=== PATIENT | female | born 1995 | race Hispanic/Latino ===

== ENCOUNTER 2019-10-09 12:08 | Day surgery (SDC) | payer OTHER ==
[~2019-10-09] VITALS: Ht 170.2 cm; Wt 78.9 kg
[~2019-10-09 12:08] MED LIST: BENA25CA4 PO; DICY10CA13 PO; NS 1,000 ML IV ONE; OMEP40CA97 PO; RANI150T14 PO; ZOFR4TAB16 PO
--- NOTE | 2019-10-09 14:13 | ROOR ---
Patient Name: Sydney Bazan Procedure Date: 10/09/2019 1:55 PM Date of : 1995 Age: 24 Room: [facility] Gender: Female Note Status: Finalized Procedure: Upper Endoscopy + Biopsies Indications: Epigastric abdominal pain, Nausea with vomiting Providers: Juan Rider MD Referring MD: ANDREZ MADDOX MD Requesting Provider: Medicines: Monitored Anesthesia Care Complications: No immediate complications. Procedure: Pre-Anesthesia Assessment: - The heart rate, respiratory rate, oxygen saturations, blood pressure, adequacy of pulmonary ventilation, and response to care were monitored throughout the procedure. The Endoscope was introduced through the mouth, and advanced to the second part of duodenum. The upper GI endoscopy was accomplished without difficulty. The patient tolerated the procedure well. Findings: The Z-line was regular and was found 40 cm from the incisors. No other significant abnormalities were identified in a careful examination of the stomach. Biopsies were taken with a cold forceps in the gastric antrum for Helicobacter pylori testing. The exam of the duodenum was otherwise normal. Impression: - Z-line regular, 40 cm from the incisors. - Biopsies were taken with a cold forceps for Helicobacter pylori testing. - The examination was otherwise normal. Recommendation: - Patient has a contact number available for emergencies. The signs and symptoms of potential delayed complications were discussed with the patient. Return to normal activities tomorrow. Written discharge instructions were provided to the patient. - Resume previous diet. - Discharge patient to home. - Continue present medications. - Await pathology results. - Telephone GI clinic for pathology results in 1 week. - Return to referring physician. - The findings and recommendations were discussed with the patient's family. Juan Rider MD Juan Rider MD 10/09/2019 2:12:32 PM Electronically signed by Juan Rider MD Number of Addenda: 0 Note Initiated On: 10/09/2019 1:55 PM Estimated Blood Loss: Estimated blood loss: none.
[2019-10-09] MEDS ORDERED: PROPOFOL 200 MG/20 ML VIAL As Ordered ONE (14:20)
[2019-10-09] MEDS ORDERED: LIDOCAINE 2% INJ 100 MG/5 ML SDV (FOR ANES.) As Ordered ONE (14:20)
[2019-10-09 14:52] VITALS: BP 135/74
== END 2019-10-09 14:58 | disposition home or self-care (01) ==
LOC: M OPP 12:08
PROVIDERS: ATTEND Internal Medicine Gastroenterology
DX: K29.50 Unspecified chronic gastritis without bleeding (principal); R10.13 Epigastric pain; R11.2 Nausea with vomiting, unspecified; Z79.899 Other long term (current) drug therapy

== ENCOUNTER 2019-12-08 01:16 | Emergency (ER) | payer OTHER ==
[~2019-12-08] VITALS: Ht 170.2 cm; Wt 80.2 kg
[~2019-12-08 01:16] MED LIST changes: -NS 1,000 ML IV ONE
[2019-12-08] MEDS ORDERED: METOCLOPRAMIDE INJ 10MG/2ML VIAL (J2765) IV ONE (01:45)
[2019-12-08] MEDS ORDERED: NS 1,000 ML IV ONE (01:45)
[2019-12-08 02:02] LABS: BASO # 0.1 10^3/uL (0.0-0.2); BASO % 0.5 % (0.0-1.0); EOS # 0.1 10^3/uL (0.0-0.5); HEMATOCRIT 40.8 % (36.0-47.0); HEMOGLOBIN 12.9 g/dl (12.0-15.5); LYMPH # 3.8 10^3/uL (1.5-5.0); LYMPH % 30.4 % (24.0-44.0); MEAN CORPUSCULAR HEMOGLOBIN 29.3 pg (27.0-33.0); MEAN CORPUSCULAR HGB CONC 31.6 g/dl (32.0-36.5); MEAN CORPUSCULAR VOLUME 92.5 fl (80.0-96.0); MONO # 0.7 10^3/uL (0.0-0.8); MONO % 5.7 % (0.0-5.0); NEUTROPHILS # 7.8 10^3/uL (1.5-8.5); NEUTROPHILS % 62.2 % (36.0-66.0); PLATELET COUNT, AUTOMATED 283 10^3/uL (150-450); RED BLOOD COUNT 4.41 10^6/uL (4.00-5.40); WHITE BLOOD COUNT 12.5 10^3/uL (4.0-10.0)
[2019-12-08 02:22] LABS: HCG, SERUM QUALITATIVE NEGATIVE (NEGATIVE)
[2019-12-08] MEDS: GASTROGRAFIN SOLUTION 30ML PO SCH ×2 (02:28→03:01)
[2019-12-08 02:30] LABS: ALBUMIN 4.1 GM/DL (3.2-5.2); ALT/SGPT 25 U/L (12-78); BILIRUBIN,DIRECT 0.2 MG/DL (0.0-0.2); BILIRUBIN,TOTAL 0.3 MG/DL (0.2-1.0); BLOOD UREA NITROGEN 14 MG/DL (7-18); CALCIUM LEVEL 9.3 MG/DL (8.5-10.1); CARBON DIOXIDE LEVEL 29 MEQ/L (21-32); CHLORIDE LEVEL 102 MEQ/L (98-107); GLOMERULAR FILTRATION RATE > 60.0 (>60); GLUCOSE, FASTING 97 MG/DL (70-100); LIPASE 109 U/L (73-393); POTASSIUM SERUM 3.9 MEQ/L (3.5-5.1); SODIUM LEVEL 138 MEQ/L (136-145); TOTAL PROTEIN 7.9 GM/DL (6.4-8.2)
[2019-12-08 02:49] LABS: AMPHETAMINES LEVEL URINE NEGATIVE (NEGATIVE); BARBITURATES URINE NEGATIVE (NEGATIVE); BENZODIAZEPINES URINE NEGATIVE (NEGATIVE); CANNABINOIDS URINE NEGATIVE (NEGATIVE); COCAINE METABOLITE URINE NEGATIVE (NEGATIVE); METHADONE URINE NEGATIVE (NEGATIVE); OPIATES URINE NEGATIVE (NEGATIVE); PHENCYCLIDINE URINE NEGATIVE (NEGATIVE)
[2019-12-08] MEDS ORDERED: ISOVUE-370 76% 100ML VIAL (Q9967) As Ordered ONE (04:06)
--- NOTE | 2019-12-08 04:34 | REPVR ---
PROCEDURE INFORMATION: Exam: CT Abdomen And Pelvis With Contrast Exam date and time: 12/08/2019 4:13 AM Age: 24 years old Clinical indication: Abdominal pain; Generalized TECHNIQUE: Imaging protocol: Computed tomography of the abdomen and pelvis with intravenous contrast. Radiation optimization: All CT scans at this facility use at least one of these dose optimization techniques: automated exposure control; mA and/or kV adjustment per patient size (includes targeted exams where dose is matched to clinical indication); or iterative reconstruction. Contrast material: ISOVUE 370; Contrast volume: 100 ml; Contrast route: IV; COMPARISON: No relevant prior studies available. FINDINGS: Liver: The liver attenuation is 77 Hounsfield units and the spleen is 126 Hounsfield units. Gallbladder and bile ducts: Normal. No calcified stones. No ductal dilation. Pancreas: Normal. No ductal dilation. Spleen: Normal. No splenomegaly. Adrenals: Normal. No mass. Kidneys and ureters: Normal. No hydronephrosis. Stomach and bowel: Unremarkable. No obstruction. No mucosal thickening. Appendix: A normal appendix is seen. Intraperitoneal space: Unremarkable. No free air. No significant fluid collection. Vasculature: Unremarkable. No abdominal aortic aneurysm. Lymph nodes: Unremarkable. No enlarged lymph nodes. Bladder: Unremarkable as visualized. Reproductive: Question of a complex cyst of the left ovary measuring 2.7 cm. Bones/joints: Unremarkable. No acute fracture. Soft tissues: Unremarkable. IMPRESSION: 1. Fatty infiltration of the liver. 2. Question of a complex left ovarian cyst measuring 2.[address] cm[address] Otherwise negative [address] abdomen/pelvis. Electronically signed by: Refugio Minor On 12/08/2019 04:31:55 AM
[2019-12-08 06:21] VITALS: BP 100/55
--- NOTE | 2019-12-08 06:42 | ED PDOC ---
Post-Departure Follow-Up nata méndez faxed formal report of ct abd/p for fu Richie Melgar MD Dec 08, 2019 06:42
== END 2019-12-08 07:04 | disposition home or self-care (01) ==
LOC: M ED 01:16
DX: G89.29 Other chronic pain (principal); R10.9 Unspecified abdominal pain; K21.9 Gastro-esophageal reflux disease without esophagitis; K76.0 Fatty (change of) liver, not elsewhere classified; Z79.899 Other long term (current) drug therapy
CPT/HCPCS: 74177; 80048; 80076; 80307; 83690; 84703; 85025; 96361; 96374; 99284; J2765; Q9963; Q9967

== ENCOUNTER 2020-01-07 11:13 | Emergency (ER) | payer OTHER ==
[~2020-01-07] VITALS: Ht 170.2 cm; Wt 84.9 kg
[2020-01-07] MEDS ORDERED: METOCLOPRAMIDE INJ 10MG/2ML VIAL (J2765) IV ONE (12:45)
[2020-01-07] MEDS ORDERED: KETOROLAC 30 MG/ML VIAL (J1885) IV ONE (12:45)
[2020-01-07] MEDS ORDERED: NS 1,000 ML IV ONE (12:45)
[2020-01-07 13:20] LABS: BASO # 0.1 10^3/uL (0.0-0.2); BASO % 0.8 % (0.0-1.0); EOS # 0.1 10^3/uL (0.0-0.5); HEMATOCRIT 37.3 % (36.0-47.0); HEMOGLOBIN 12.3 g/dl (12.0-15.5); LYMPH # 2.8 10^3/uL (1.5-5.0); LYMPH % 36.4 % (24.0-44.0); MONO # 0.4 10^3/uL (0.0-0.8); MONO % 5.4 % (0.0-5.0); NEUTROPHILS # 4.3 10^3/uL (1.5-8.5); NEUTROPHILS % 56.3 % (36.0-66.0); PLATELET COUNT, AUTOMATED 309 10^3/uL (150-450); WHITE BLOOD COUNT 7.6 10^3/uL (4.0-10.0)
[2020-01-07 14:10] LABS: HCG, SERUM QUALITATIVE NEGATIVE (NEGATIVE)
[2020-01-07 14:13] LABS: ACETAMINOPHEN LEVEL < 2.0 UG/ML (10.0-30.0); ALT/SGPT 31 U/L (12-78); BILIRUBIN,DIRECT 0.1 MG/DL (0.0-0.2); BILIRUBIN,TOTAL 0.5 MG/DL (0.2-1.0); BLOOD UREA NITROGEN 14 MG/DL (7-18); CALCIUM LEVEL 9.5 MG/DL (8.5-10.1); CARBON DIOXIDE LEVEL 27 MEQ/L (21-32); CHLORIDE LEVEL 105 MEQ/L (98-107); CK-MB VALUE MASS < 1.0 NG/ML (<3.6); CPK CREATINE PHOSPHOKINASE 117 U/L (26-192); CREATININE FOR GFR 0.84 MG/DL (0.55-1.30); ETHYL ALCOHOL (ETHANOL) < 0.003 % (0.000-0.010); GLOMERULAR FILTRATION RATE > 60.0 (>60); GLUCOSE, FASTING 96 MG/DL (70-100); MB/CK RELATIVE INDEX 0.85 (< OR =4); POTASSIUM SERUM 4.1 MEQ/L (3.5-5.1); SALICYLATE LEVEL < 1.7 MG/DL (5.0-30.0); SODIUM LEVEL 137 MEQ/L (136-145); TOTAL PROTEIN 7.5 GM/DL (6.4-8.2); TROPONIN I 0.02 NG/ML (< 0.10)
[2020-01-07] MEDS ORDERED: REGL10TA6 PO (14:38)
[2020-01-07 14:52] VITALS: BP 102/57
== END 2020-01-07 14:56 | disposition home or self-care (01) ==
LOC: M ED 11:13
DX: R51 Headache (principal); R42 Dizziness and giddiness; H53.149 Visual discomfort, unspecified; S09.90XA Unspecified injury of head, initial encounter; X58.XXXA Exposure to other specified factors, initial encounter; Y92.9 Unspecified place or not applicable; Y93.9 Activity, unspecified; Y99.9 Unspecified external cause status
CPT/HCPCS: 80048; 80076; 82550; 82553; 84484; 84703; 85025; 96361; 96374; 96375; 99284; G0480; J1885; J2765

== ENCOUNTER 2020-03-06 16:01 | Inpatient (IN) | payer OTHER ==
[~2020-03-06] VITALS: Ht 170.2 cm; Wt 86.2 kg
[~2020-03-06 16:01] MED LIST changes: +REGL10TA6 PO
[2020-03-06 16:56] LABS: BASO # 0.1 10^3/uL (0.0-0.2); BASO % 0.9 % (0.0-1.0); EOS # 0.1 10^3/uL (0.0-0.5); EOS % 1.6 % (0.0-3.0); HEMATOCRIT 37.6 % (36.0-47.0); HEMOGLOBIN 12.5 g/dl (12.0-15.5); LYMPH # 2.3 10^3/uL (1.5-5.0); LYMPH % 28.7 % (24.0-44.0); MEAN CORPUSCULAR HEMOGLOBIN 30.1 pg (27.0-33.0); MEAN CORPUSCULAR HGB CONC 33.2 g/dl (32.0-36.5); MEAN CORPUSCULAR VOLUME 90.6 fl (80.0-96.0); MONO # 0.4 10^3/uL (0.0-0.8); MONO % 5.4 % (0.0-5.0); PLATELET COUNT, AUTOMATED 286 10^3/uL (150-450); RED BLOOD COUNT 4.15 10^6/uL (4.00-5.40); WHITE BLOOD COUNT 7.9 10^3/uL (4.0-10.0)
[2020-03-06 17:18] LABS: AMPHETAMINES LEVEL URINE NEGATIVE (NEGATIVE); BARBITURATES URINE NEGATIVE (NEGATIVE); BENZODIAZEPINES URINE NEGATIVE (NEGATIVE); CANNABINOIDS URINE NEGATIVE (NEGATIVE); COCAINE METABOLITE URINE NEGATIVE (NEGATIVE); HCG, SERUM QUALITATIVE NEGATIVE (NEGATIVE); METHADONE URINE NEGATIVE (NEGATIVE); OPIATES URINE NEGATIVE (NEGATIVE); PHENCYCLIDINE URINE NEGATIVE (NEGATIVE)
[2020-03-06 17:32] LABS: ALT/SGPT 35 U/L (12-78); BILIRUBIN,TOTAL 0.3 MG/DL (0.2-1.0); BLOOD UREA NITROGEN 11 MG/DL (7-18); CARBON DIOXIDE LEVEL 24 MEQ/L (21-32); CHLORIDE LEVEL 109 MEQ/L (98-107); CPK CREATINE PHOSPHOKINASE 178 U/L (26-192); CREATININE FOR GFR 0.82 MG/DL (0.55-1.30); GLOMERULAR FILTRATION RATE > 60.0 (>60); GLUCOSE, FASTING 96 MG/DL (70-100); POTASSIUM SERUM 4.2 MEQ/L (3.5-5.1); SODIUM LEVEL 139 MEQ/L (136-145)
[2020-03-06 17:33] LABS: ACETAMINOPHEN LEVEL < 2.0 UG/ML (10.0-30.0); ALBUMIN 4.1 GM/DL (3.2-5.2); BILIRUBIN,DIRECT < 0.1 MG/DL (0.0-0.2); ETHYL ALCOHOL (ETHANOL) 0.003 % (0.000-0.010); SALICYLATE LEVEL < 1.7 MG/DL (5.0-30.0); THYROID STIMULATING HORMONE 0.954 uIU/ML (0.358-3.740); TOTAL PROTEIN 7.5 GM/DL (6.4-8.2)
[2020-03-06] MEDS ORDERED: KETOROLAC TROMETHAMINE 10 MG TAB PO ONE (19:45)
[2020-03-07] MEDS ORDERED: MOM 30ML SUSPENSION UDC PO PRN (00:15)
[2020-03-07] MEDS ORDERED: MAALOX 30 ML SUSP *UDC PO PRN (00:15)
[2020-03-07 02:31] VITALS: BP 107/59
[2020-03-07] MEDS: traZODone 50 MG TAB PO PRN ×2 (03:47→23:05)
--- NOTE | 2020-03-07 11:51 | MHHPEPDOC ---
[facility] History & Physical History and Physical DATE OF ADMISSION: March 07, 2020 at 02:22 New Patient Sydney Bazan MRN: N/A Date of : N/A Date of Service: 03/07/2020 Chief Complaint "This abdominal pain makes me depressed." History of Present Illness The patient, a 24-year-old woman with a history of depression related to chronic pain presents for reported hopelessness and on a voluntary status. She had reportedly been brought in by her therapist as she had been making concerning statements. She was evaluated and she wished to stay due to her severe dep ression related to her chronic pain. The patient reports that she had no history prior to this and for the last year has had chronic abdominal pain that has not been able to be elucidated in terms of diagnosis and that this causes her significant problems. 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 Review Of Systems Depression: As above. Anxiety: As above. Mariaa: The patient denies any episodes of euphoria/dysphoria associated with decreased need for sleep, hedonism, talkatively or impulsivity lasting longer than 5 days. Psychotic: The patient denies any experiences of auditory or visual hallucinations. They deny any episodes of paranoia or delusional thinking in the past Trauma: The patient denies any traumatic events associated with nightmares or intrusive thoughts. Borderline: The patient screens negative for borderline personality at this junction. Past Psychiatric History Reportedly has a history of depression,has tried multiple different antidepressants and reports that they generally "don't work for her." No history of inpatient admissions or suicide attempts. Allergies Please see below. Family Psychiatric History Non-contributory. Social History Active duty solcher. No history of trauma or abuse. Currently still working despite chronic pain. No significant legal problems. Substance Abuse History The patient denies any excessive alcohol use, tobacco or illicit drug use, denies history of substance use treatment. Medical History History of chronic abdominal pain. Mental Status Examination General: Well dressed with good hygiene Speech: Spontaneous and fluid Thought processes: Linear and logical MSK: Smooth and coordinated gait, no signs of tremors or involuntary orofacial movements Thought content: Hopelessness. Abstract reasoning, and computation: Intact Description of associations: Intact Description of abnormal or psychotic thoughts: Denies any suicidal or homicidal ideation. Denies any auditory or visual hallucinations. Does not appear to be responding to internal stimuli. Does not appear to be endorsing any bizarre or paranoid ideation. Judgment: fair Insight: fair Orientation: Alert and orientated 3 Cognition: Grossly normal Recent and remote memory: Intact Attention span and concentration: Intact Fund of knowledge: Adequate Mood: "okay" Affect: Dysthymic with a constricted range. Diagnoses Unspecified depressive disorder. Likely related to chronic pain. Somatic symptom disorder with predominant pain. Assessment and Plan Unspecified depressive disorder/chronic pain: Discussed with patient at length about different options. SSuboxone 8 mg daily as an attempt for depression and chronic pain treatment. The risks, benefits as well as common side effects as well as alternative treatments (including non-treatment) were discussed with the patient both in general and for their particular case. The patient selected this option out of a range. Disposition Patient will be continued on a voluntary stay for medication titration in order to help alleviate her symptoms and make her more successful as an outpatient. Problem List 1. Risk for suicide. 2. Inaffective coping. Initial Treatment Plan 1. Patient was admitted on a 07.12 legal status. 2. Complete history was obtained. 3. With patients permission, family will be contacted and database will be expanded. 4. Patients medication regimen will be reviewed and changed accordingly. 5. Patient will be provided with protected environment. 6. Patient will be treated with individual, group, and milieu therapies. 7. Patient will receive supportive psych-education. 8. Discharge planning will commence immediately. 9. Outpatient follow-up treatment will be strongly recommended. 10. The initial treatment plan will focus initially on: Estimated Length Of Stay 3 days. Time Spent 70 minutes with greater than 50% of time spent on counseling/coordination of care. Monday Vital Signs Vital Signs Date Time Temp Pulse Resp B/P (MAP) Pulse Ox O2 Delivery O2 Flow Rate FiO2 03/07/20 02:31 99.3 73 14 107/59 (75) 98 Room Air Laboratory Data 24H Labs Laboratory Tests 2 03/06/20 16:31: Immature Granulocyte % (Auto) 0.4, Neutrophils (%) (Auto) 63.0, Lymphocytes (%) (Auto) 28.7, Monocytes (%) (Auto) 5.4H, Eosinophils (%) (Auto) 1.6, Basophils (%) (Auto) 0.9, Neutrophils # (Auto) 5.0, Lymphocytes # (Auto) 2.3, Monocytes # (Auto) 0.4, Eosinophils # (Auto) 0.1, Basophils # (Auto) 0.1, Nucleated Red Blood Cells % (auto) 0.0, Anion Gap 6L, Glomerular Filtration Rate > 60.0, Calcium Level 9.0, Total Bilirubin 0.3, Direct Bilirubin < 0.1, Aspartate Amino Transf (AST/SGOT) 19, Alanine Aminotransferase (ALT/SGPT) 35, Alkaline Phosphatase 90, Total Creatine Kinase 178, Total Protein 7.5, Albumin 4.1, Albumin/Globulin Ratio 1.21, Thyroid Stimulating Hormone (TSH) 0.954, Human Chorionic Gonadotropin, Qual NEGATIVE, Salicylates Level < 1.7L, Urine Opiates Screen NEGATIVE, Urine Methadone Screen NEGATIVE, Acetaminophen Level < 2.0L, Urine Barbiturates Screen NEGATIVE, Urine Phencyclidine Screen NEGATIVE, Urine Amphetamines Screen NEGATIVE, Urine Benzodiazepines Screen NEGATIVE, Urine Cocaine Metabolite Screen NEGATIVE, Urine Cannabinoids Screen NEGATIVE, Ethyl A lcohol Level 0.003 CBC/BMP Laboratory Tests 03/06/20 16:31 Medications No Active Prescriptions or Reported Meds Allergies Coded Allergies: No Known Allergies (Unverified , 10/07/19) CHELA VALERA DO March 07, 2020 11:51
[2020-03-07] MEDS ORDERED: BUPRENORPHINE/NALOXONE 8-2MG SUBLINGUAL TABLET(SUBOXONE) SL ONE (14:00)
--- NOTE | 2020-03-07 14:56 | HPEPDOC ---
[facility] Medical History & Physical Date of Admission March 07, 2020 Date of Service: March 07, 2020 Attending Physician: Marisol Kenny MD History and Physical HISTORY OF PRESENT ILLNESS: The patient is a 24-year-old female with past medical history of chronic right upper quadrant pain who presented to [facility] emergency room on 03/07/2020 from [place] after making suicidal statements to her therapist. Upon arrival the patient was very angry, flat. She denied homicidal ideation. She states that she "becomes depressed when something bad happens or when she is sick of stuff." She also states she becomes depressed when "it hurts". When asked what hurts she said she has chronic right upper abdominal pain which has not been diagnosed as of yet. The patient is currently active duty . According to emergency room notes the patient states she is "pushing everybody away". She was quoted as saying "I miss living". She states that her pain is present with everything that she does has led to decreased appetite and that she has to "make herself eat". The patient admits to sleeping often during the day, feeling lethargic at times, nausea with vomiting almost daily. She is being followed by an outpatient lightning rod installer for the right upper quadrant pain and they recently sent her to see an AGRICULTURAL LOAN OFFICER specialist. In regards to the right upper quadrant pain has been present there for almost a year, she has seen a lightning rod installer twice. She has a CT abdomen and pelvis from 12/08/19 which showed 1. Fatty infiltration of the liver, 2. Question of a complex left ovarian cyst measuring 2.[address] abdomen/pelvis. Vital signs have been stable, there are no acute medical problems she would like to discuss with me on interview. She was not tearful or hostile at all during conversation. She was forthcoming with information. REVIEW OF SYSTEMS: CONSTITUTIONAL: Denies unexplained weight gain or weight loss,fever, night sweats EYES: Denies eye drainage, eye pain, visual changes, dry/irritated eye EARS, NOSE, MOUTH, THROAT: Denies difficulty hearing, ringing in ears, mouth sores, loose teeth, sore throat, facial numbness or pain NECK: Denies swollen glands CARDIOVASCULAR: Denies irregular heartbeat, swelling of feet or legs, pain in legs with walking RESPIRATORY: Denies shortness of breath, night sweats, wheezing, sputum production, oxygen at home, coughing up blood, cough lasting > 1 month GASTROINTESTINAL: Denies constipation, bloody stool, diarrhea, heartburn GENITOURINARY: Denies painful urination, bloody urine, frequent urination, urgency, leaking urine, impotence MUSCULOSKELETAL: Denies joint pain, muscle pain, leg swelling INTEGUMENTARY: Denies rash, itching, new skin lesion, change in existing skin lesion, hair loss or increase, breast changes. NEUROLOGICAL: Denies headaches, difficulty walking, numbness or tingling PSYCHIATRIC: Denies hallucinations PAST MEDICAL HISTORY: 1. Chronic right upper quadrant pain PAST SURGICAL HISTORY: 1. Endoscopy 08/2019, findings negative FAMILY HISTORY: Father: No medical history, alive Mother: No medical history, alive Uncle: CKD, alive Aunt: Cervical and ovarian cancer, alive SOCIAL HISTORY: The patient denies smoking and drinks alcohol socially. She denies illicit drug use or history of IV drug use. 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 She follows up with PCP and the [facility] regularly. She states to have no inpatient mental health unit admissions in the past. She lives on [address]. She is a full code ALLERGIES: Please see below. CURRENT MEDICATIONS: Please see below. PHYSICAL EXAMINATION: CONSTITUTIONAL: No acute distress, AAO x 3 EYES: PERRLA, EOM intact HENT, MOUTH: Normocephalic, atraumatic, moist mucous membranes, NECK: SUPPLE, no JVD, no lymphadenopathy, no carotid bruit CV: Regular rate and rhythm, S1S2 normal, no murmurs/rubs/gallops RESPIRATORY: Clear to auscultation bilaterally, no rales/rhonchi/wheezes GI: BS positive in 4 quadrants, soft, nontender, nondistended, no rebound or guarding, no organomegaly : Deferred MUSCULOSKELETAL: Normal ROM. No cyanosis, clubbing, swelling, joint deformity, extremity edema INTEGUMENTARY: Intact, no rashes, no lesions, no erythema NEUROLOGIC: Cranial Nerves II-XII are intact, no focal deficits PSYCHIATRIC: Mood and affect are normal LABORATORY DATA: Please see below IMAGING: None ASSESSMENT: Patient is a 24-year-old female admitted for unspecified depressive disorder, suicidal comments. PLAN: 1. Unspecified depressive disorder. Currently the patient denies homicidal or suicidal ideation. Plan per psychiatry team. 2. Right upper quadrant pain, chronic. The patient is currently seeing a GI specialist was working her up for this issue. Labs on admission were un remarkable and do not warrant additional imaging to be done at this time. Pain is currently controlled. 3. Vaginal bleeding. Patient states that her menstrual cycles are longer than normal at 57 days long now that she has IUD in place. She also complains of spotting intermittently. She was recently referred to AGRICULTURAL LOAN OFFICER. Currently H&H is stable, no signs of acute bleeding. DISPOSITION: Thank you kindly for this medical consult. Will sign off at this time; however, if needed to reassess again please feel free to contact us at any time. Vital Signs Vital Signs Date Time Temp Pulse Resp B/P (MAP) Pulse Ox O2 Delivery O2 Flow Rate FiO2 03/07/20 02:31 99.3 73 14 107/59 (75) 98 Room Air Laboratory Data Labs 24H Laboratory Tests 2 03/06/20 16:31: Immature Granulocyte % (Auto) 0.4, Neutrophils (%) (Auto) 63.0, Lymphocytes (%) (Auto) 28.7, Monocytes (%) (Auto) 5.4H, Eosinophils (%) (Auto) 1.6, Basophils (%) (Auto) 0.9, Neutrophils # (Auto) 5.0, Lymphocytes # (Auto) 2.3, Monocytes # (Auto) 0.4, Eosinophils # (Auto) 0.1, Basophils # (Auto) 0.1, Nucleated Red Blood Cells % (auto) 0.0, Anion Gap 6L, Glomerular Filtration Rate > 60.0, Calcium Level 9.0, Total Bilirubin 0.3, Direct Bilirubin < 0.1, Aspartate Amino Transf (AST/SGOT) 19, Alanine Aminotransferase (ALT/SGPT) 35, Alkaline Phos phatase 90, Total Creatine Kinase 178, Total Protein 7.5, Albumin 4.1, Albumin/Globulin Ratio 1.21, Thyroid Stimulating Hormone (TSH) 0.954, Human Chorionic Gonadotropin, Qual NEGATIVE, Salicylates Level < 1.7L, Urine Opiates Screen NEGATIVE, Urine Methadone Screen NEGATIVE, Acetaminophen Level < 2.0L, Urine Barbiturates Screen NEGATIVE, Urine Phencyclidine Screen NEGATIVE, Urine Amphetamines Screen NEGATIVE, Urine Benzodiazepines Screen NEGATIVE, Urine Cocaine Metabolite Screen NEGATIVE, Urine Cannabinoids Screen NEGATIVE, Ethyl Alcohol Level 0.003 CBC/BMP Laboratory Tests 03/06/20 16:31 Home Medications No Active Prescriptions or Reported Meds Allergies Coded Allergies: No Known Allergies (Unverified , 10/07/19) A-FIB/CHADSVASC A-FIB History Current/History of A-Fib/PAF?: No Current PO Anticoag Therapy: No Age/Risk Factor Scoring CHADSVASC: CHADSVASC Response (Comments) Value Age Risk Factor Age < 65 years old 0 Gender Risk Factor Female 1 Hx of CHF No 0 Hx of HTN No 0 Hx of Stroke/TIA/or VTE No 0 Hx of Diabetes No 0 Hx of Vascular Disease No 0 Total 1 Treatment Treatment ordered: NONE (none indicated) Marisol Kenny MD March 07, 2020 14:56
[2020-03-07 16:16] VITALS: BP 113/56
[2020-03-07] MEDS: ONDANSETRON 4 MG ORAL DISINTEGRATING TAB PO PRN ×2 (16:29→21:04)
[2020-03-07 20:11] VITALS: BP 121/60
[2020-03-07] MEDS: METOCLOPRAMIDE HCL LIQUID 10 MG/10 ML UDC PO ONE ×2 (21:51→22:26)
[2020-03-07] MEDS ORDERED: ONDANSETRON 4 MG TAB PO ONE (22:30)
[2020-03-07] MEDS ORDERED: ONDANSETRON 4 MG ORAL DISINTEGRATING TAB PO ONE (22:45)
[2020-03-07] MEDS ORDERED: METOCLOPRAMIDE INJ 10MG/2ML VIAL (J2765 PER 1) IV ONE (22:45)
[2020-03-07] MEDS ORDERED: METOCLOPRAMIDE INJ 10MG/2ML VIAL (J2765 PER 1) IM ONE (22:45)
[2020-03-08 06:33] VITALS: BP 114/55
[2020-03-08] MEDS ORDERED: BUPRENORPHINE/NALOXONE 8-2MG SUBLINGUAL TABLET(SUBOXONE) SL SCH (09:00)
--- NOTE | 2020-03-08 11:35 | MHIPNPDOC ---
[facility] Progress Note Progress Note Inpatient Progress Note Sydney Bazan MRN: N/A Date of : N/A Date of Service: 03/08/2020 History of Present Illness The patient, a 24-year-old woman with a history of depression related to chronic pain presents for reported hopelessness and on a voluntary status. She had reportedly been brought in by her therapist as she had been making concerning statements. She was evaluated and she wished to stay due to her severe depression related to her chronic pain. The patient reports that she had no history prior to this and for the last year has had chronic abdominal pain that has not been able to be elucidated in terms of diagnosis and that this causes her significant problems. 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 Interval History The patient is met with today. She reports that she saw some nausea, but is improved from the previous evening. She reports the Suboxone gave her significant nausea and vomiting. She reports still having an upset stomach and some nausea today. She reports that she still has her chronic pain. She is interested in some Toradol since it has been helpful for her in the past. She has had no behavioral problems and generally is amenable with treatment. Review Of Systems General: Denies fever or appetite changes Cardiovascular: Denies Chest pain or palpations GI: As above Respiratory: Denies shortness of breath or cough Neuro: Denies dizziness, tremors Derm: Denies any rashes or pruritus : Denies any dysuria or urinary problems MSK: Chronic pain HEENT: Denies any vision changes or headaches Psychotherapy None on this visit. Vital Signs Reviewed. Mental Status Examination General: Well dressed with good hygiene Speech: Spontaneous and fluid Thought processes: Linear and logical MSK: Smooth and coordinated gait, no signs of tremors or involuntary orofacial movements Thought content: Hopelessness. Abstract reasoning, and computation: Intact Description of associations: Intact Description of abnormal or psychotic thoughts: Denies any suicidal or homicidal ideation. Denies any auditory or visual hallucinations. Does not appear to be responding to internal stimuli. Does not appear to be endorsing any bizarre or paranoid ideation. Judgment: fair Insight: fair Orientation: Alert and orientated 3 Cognition: Grossly normal Recent and remote memory: Intact Attention span and concentration: Intact Fund of knowledge: Adequate Mood: "okay" Affect: Dysthymic with a constricted range. Diagnoses Unspecified depressive disorder. Likely related to chronic pain. Somatic symptom disorder with predominant pain. Assessment and Plan Unspecified depressive disorder/chronic pain: We will observe for today. Subsequently we will try Cymbalta tomorrow as GI side effects resolve considering chronic pain consultation. The risks, benefits as well as common side effects as well as alternative treatments (including non-treatment) were discussed with the patient both in general and for their particular case. The patient selected this option out of a range. Disposition Discharge later this week. We will continue to try medications. Patient amenable to staying on voluntary. Time Spent 15 minutes. Monday Vital Signs Vital Signs Date Time Temp Pulse Resp B/P (MAP) Pulse Ox O2 Delivery O2 Flow Rate FiO2 03/08/20 06:33 98.1 61 16 114/55 (74) 100 Room Air Current Medications Current Medications Medications (Trade) Dose Ordered Sig/Jonn Route PRN Reason Start Time Stop Time Status Last Admin Dose Admin Acetaminophen (Tylenol Tab) 650 mg Q6HP PRN PO HEADACHE or DISCOMFORT 03/07/20 00:15 Al Hydrox/Mg Hydrox/Simethicone (Mylanta) 30 ml Q4HP PRN PO HEARTBURN/INDIGESTION 03/07/20 00:15 Buprenorphine/ Naloxone (Suboxone 8/2mg) 1 tab DAILY SL 03/08/20 09:00 03/07/20 16:09 DC Magnesium Hydroxide (Milk Of Magnesia) 30 ml DAILYPRN PRN PO CONSTIPATION 03/07/20 00:15 Ondansetron HCl (Zofran Odt) 4 mg Q4HP PRN PO NAUSEA OR VOMITING 03/07/20 16:15 03/07/20 21:04 Trazodone HCl (Desyrel) 50 mg QHSP PRN PO INSOMNIA 03/07/20 00:15 03/07/20 23:05 Allergies Coded Allergies: No Known Allergies (Unverified , 10/07/19) CHELA VALERA DO March 08, 2020 11:35
[2020-03-08] MEDS ORDERED: KETOROLAC 30 MG/ML 1ML VIAL IM ONE (15:00)
[2020-03-08 15:23] VITALS: BP 134/64
[2020-03-08] MEDS: traZODone 50 MG TAB PO PRN (20:03)
[2020-03-08] MEDS: ONDANSETRON 4 MG ORAL DISINTEGRATING TAB PO PRN (20:42)
[2020-03-09 06:25] VITALS: BP 106/55
--- NOTE | 2020-03-09 09:51 | MHIPNPDOC ---
[facility] Progress Note Progress Note Inpatient Progress Note Sydney Bazan MRN: N/A Date of : N/A Date of Service: 03/09/2020 History of Present Illness The patient, a 24-year-old woman with a history of depression related to chronic pain presents for reported hopelessness and on a voluntary status. She had reportedly been brought in by her therapist as she had been making concerning statements. She was evaluated and she wished to stay due to her severe depression related to her chronic pain. The patient reports that she had no history prior to this and for the last year has had chronic abdominal pain that has not been able to be elucidated in terms of diagnosis and that this causes her significant problems. 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 Interval History The patient was met with today. She reports her abdominal pain is improved. She does report some dizziness. She reports her menses have just started. The patient reports that her depression is still present with low mood, but no suicidal thoughts. She has been attending the treatment intermittently without any behavioral problems. Review Of Systems General: Denies fever or appetite changes Cardiovascular: Denies Chest pain or palpations GI: Denies Nausea, vomiting, or bowel changes Respiratory: Denies shortness of breath or cough Neuro: As above. Derm: Denies any rashes or pruritus : Denies any dysuria or urinary problems MSK: Denies any muscle tightness or stiffness HEENT: Denies any vision changes or headaches Psychotherapy None on this visit. Vital Signs Reviewed. Mental Status Examination General: Well dressed with good hygiene Speech: Spontaneous and fluid Thought processes: Linear and logical MSK: Smooth and coordinated gait, no signs of tremors or involuntary orofacial movements Thought content: Hopelessness. Abstract reasoning, and computation: Intact Description of associations: Intact Description of abnormal or psychotic thoughts: Denies any suicidal or homicidal ideation. Denies any auditory or visual hallucinations. Does not appear to be responding to internal stimuli. Does not appear to be endorsing any bizarre or paranoid ideation. Judgment: fair Insight: fair Orientation: Alert and orientated 3 Cognition: Grossly normal Recent and remote memory: Intact Attention span and concentration: Intact Fund of knowledge: Adequate Mood: "okay" Affect: Dysthymic with a constricted range. Diagnoses Unspecified depressive disorder. Likely related to chronic pain. Somatic symptom disorder with predominant pain. Assessment and Plan Unspecified depressive disorder/chronic pain: We will try Cymbalta 20 mg nightly. The risks, benefits as well as common side effects as well as alternative treatments (including non-treatment) were discussed with the patient both in gen eral and for their particular case. The patient selected this option out of a range. Disposition Further observation, we will likely discharge midweek as she is no longer suicidal. Time Spent 15 minutes. Monday Vital Signs Vital Signs Date Time Temp Pulse Resp B/P (MAP) Pulse Ox O2 Delivery O2 Flow Rate FiO2 03/09/20 06:25 97.7 73 16 106/55 (72) 03/08/20 06:33 100 Room Air Current Medications Current Medications Medications (Trade) Dose Ordered Sig/Jonn Route PRN Reason Start Time Stop Time Status Last Admin Dose Admin Acetaminophen (Tylenol Tab) 650 mg Q6HP PRN PO HEADACHE or DISCOMFORT 03/07/20 00:15 Al Hydrox/Mg Hydrox/Simethicone (Mylanta) 30 ml Q4HP PRN PO HEARTBURN/INDIGESTION 03/07/20 00:15 Buprenorphine/ Naloxone (Suboxone 8/2mg) 1 tab DAILY SL 03/08/20 09:00 03/07/20 16:09 DC Magnesium Hydroxide (Milk Of Magnesia) 30 ml DAILYPRN PRN PO CONSTIPATION 03/07/20 00:15 Ondansetron HCl (Zofran Odt) 4 mg Q4HP PRN PO NAUSEA OR VOMITING 03/07/20 16:15 03/08/20 20:42 Trazodone HCl (Desyrel) 50 mg QHSP PRN PO INSOMNIA 03/07/20 00:15 03/08/20 20:03 Allergies Coded Allergies: No Known Allergies (Unverified , 10/07/19) CHELA VALERA DO March 09, 2020 09:51
[2020-03-09 11:18] LABS: HEMATOCRIT 36.5 % (36.0-47.0); HEMOGLOBIN 11.6 g/dl (12.0-15.5); MEAN CORPUSCULAR HEMOGLOBIN 29.4 pg (27.0-33.0); MEAN CORPUSCULAR HGB CONC 31.8 g/dl (32.0-36.5); MEAN CORPUSCULAR VOLUME 92.4 fl (80.0-96.0); PLATELET COUNT, AUTOMATED 289 10^3/uL (150-450); RED BLOOD COUNT 3.95 10^6/uL (4.00-5.40); WHITE BLOOD COUNT 8.8 10^3/uL (4.0-10.0)
[2020-03-09 15:46] LABS: ALBUMIN 3.6 GM/DL (3.2-5.2); ALT/SGPT 23 U/L (12-78); BILIRUBIN,TOTAL 0.3 MG/DL (0.2-1.0); BLOOD UREA NITROGEN 17 MG/DL (7-18); CALCIUM LEVEL 9.3 MG/DL (8.5-10.1); CARBON DIOXIDE LEVEL 30 MEQ/L (21-32); CHLORIDE LEVEL 105 MEQ/L (98-107); CREATININE FOR GFR 1.08 MG/DL (0.55-1.30); GLOMERULAR FILTRATION RATE > 60.0 (>60); GLUCOSE, FASTING 97 MG/DL (70-100); POTASSIUM SERUM 4.3 MEQ/L (3.5-5.1); SODIUM LEVEL 139 MEQ/L (136-145); TOTAL PROTEIN 6.9 GM/DL (6.4-8.2)
--- NOTE | 2020-03-09 16:17 | IPNPDOC ---
Date Seen The patient was seen on 03/09/20. Progress Note SUBJECTIVE: I was asked to assess Ms. Bazan today due to abnormal labs. The patient was given Suboxone for abdominal pain on 03/07/2020 which cause visceral reaction of increased nausea, vomiting, pain, increased lightheadedness. The patient had been given several doses of Toradol IV over the past several days, nausea medication. I was told there was a concern for possible GI bleed due to a drop in H&H. Upon review of her labs there was only a very mild drop in her H&H. Repeat CMP showed no change from before and was unremarkable. On examination of the patient's abdomen the patient states she does not have any new abdominal pain compared to when previously assessed, she has chronic pain which she has been getting worked up as outpatient by both gynecology and GI. She denies currently nausea, vomiting, fevers, chills, diarrhea. She does admit to her starting her menses on 03/08/2020 and was very heavy, soaking through several pads during the day. OBJECTIVE: VITAL SIGNS: Please see below PHYSICAL EXAMINATION: CONSTITUTIONAL: No acute distress, AAO x 3 EYES: PERRLA, EOM intact HENT, MOUTH: Normocephalic, atraumatic, moist mucous membranes, NECK: SUPPLE, no JVD, no lymphadenopathy, no carotid bruit CV: Regular rate and rhythm, S1S2 normal, no murmurs/rubs/gallops RESPIRATORY: Clear to auscultation bilaterally, no rales/rhonchi/wheezes GI: RUQ tenderness on exam, epigastric tenderness, BS positive in 4 quadrants, soft, nondistended, no rebound or guarding, no organomegaly : Deferred MUSCULOSKELETAL: Normal ROM. No cyanosis, clubbing, swelling, joint deformity, extremity edema INTEGUMENTARY: Intact, no rashes, no lesions, no erythema NEUROLOGIC: Cranial Nerves II-XII are intact, no focal deficits PSYCHIATRIC: Mood and affect are normal LABORATORY DATA: Please see below IMAGING: None ASSESSMENT: Patient is a 24-year-old female admitted for unspecified depressive disorder, suicidal comments, abdominal pain, abnormal labs . PLAN: 1. Right upper quadrant pain, chronic. Pain is similar to when initially assessed, CMP unremarkable today. The patient denies any nausea, vomiting, diarrhea today. At this time would still recommend against further workup for this chronic pain. The patient is currently seeing a GI specialist was working her up actively. She is followed by a taping supervisor who has mentioned to her recently about additional testing wanting to be done (specific testing was unknown by the patient). 2. Lightheadedness and dizziness. This is likely secondary to nausea/vomiting, perhaps some mild dehydration secondary to reaction to Suboxone. She states her symptoms are improving overall. Would recommend encouraging fluids every 2 hours while awake, orthostatic vital signs are ordered 3. Vaginal bleeding. The patient states she's had some increased spotting since the last time I spoke with her, states to have started her period early on 03/08/2020. The drop in her H&H today is not significant enough to have caused symptoms above or to be of concern at this time. Would recommend her to follow- up with her taping supervisor for continued monitoring. 4. Unspecified depressive disorder. Plan per psychiatry team. VS, I&O, 24H, Fishbone Vital Signs/I&O Vital Signs Date Time Temp Pulse Resp B/P (MAP) Pulse Ox O2 Delivery O2 Flow Rate FiO2 03/09/20 06:25 97.7 73 16 106/55 (72) 03/08/20 06:33 100 Room Air Laboratory Data 24H LABS Laboratory Tests 2 03/09/20 10:41: Nucleated Red Blood Cells % (auto) 0.0 03/09/20 14:51: Anion Gap 4L, Glomerular Filtration Rate > 60.0, Calcium Level 9.3, Total Bilirubin 0.3, Aspartate Amino Transf (AST/SGOT) 12, Alanine Aminotransferase (ALT/SGPT) 23, Alkaline Phosphatase 75, Total Protein 6.9, Albumin 3.6, Albumin/Globulin Ratio 1.09 CBC/BMP Laboratory Tests 03/09/20 10:41 03/09/20 14:51 Current Medications Current Medications Medications (Trade) Dose Ordered Sig/Jonn Route PRN Reason Start Time Stop Time Status Last Admin Dose Admin Acetaminophen (Tylenol Tab) 650 mg Q6HP PRN PO HEADACHE or DISCOMFORT 03/07/20 00:15 Al Hydrox/Mg Hydrox/Simethicone (Mylanta) 30 ml Q4HP PRN PO HEARTBURN/INDIGESTION 03/07/20 00:15 Buprenorphine/ Naloxone (Suboxone 8/2mg) 1 tab DAILY SL 5/10/20 09:00 03/07/20 16:09 DC Duloxetine HCl (Cymbalta) 20 mg QPM PO 03/09/20 21:00 Magnesium Hydroxide (Milk Of Magnesia) 30 ml DAILYPRN PRN PO CONSTIPATION 03/07/20 00:15 Ondansetron HCl (Zofran Odt) 4 mg Q4HP PRN PO NAUSEA OR VOMITING 03/07/20 16:15 03/08/20 20:42 Trazodone HCl (Desyrel) 50 mg QHSP PRN PO INSOMNIA 03/07/20 00:15 03/08/20 20:03 Allergies Coded Allergies: No Known Allergies (Unverified , 10/07/19) Marisol Kenny MD March 09, 2020 16:17
[2020-03-09 16:36] VITALS: BP_SYST 122; BP_SYST 125; BP_SYST 126; BP_DIAS 65; BP_DIAS 68; BP_DIAS 69
[2020-03-09 17:03] LABS: APPEARANCE, URINE CLEAR (CLEAR); BACTERIA, URINE AUTO NEGATIVE (NEGATIVE); BILIRUBIN, URINE AUTO NEGATIVE (NEGATIVE); BLOOD, URINE BLOOD 3+ (NEGATIVE); COLOR, URINE COLORLESS (YELLOW); GLUCOSE, URINE (UA) AUTO NEGATIVE (NEGATIVE); KETONE, URINE AUTO NEGATIVE (NEGATIVE); LEUKOCYTE ESTERASE, URINE AUTO NEGATIVE (NEGATIVE); NITRITE, URINE AUTO NEGATIVE (NEGATIVE); PROTEIN, URINE AUTO NEGATIVE (NEGATIVE); RBC, URINE AUTO 6 /HPF (0-3); SPECIFIC GRAVITY URINE AUTO 1.003 (1.002-1.035); SQUAMOUS EPITHELIAL CELL UR AU 0 /HPF (0-6); UROBILINOGEN, URINE AUTO 0.2 mg/dL (0.0-2.0); WBC, URINE AUTO 3 /HPF (0-3)
[2020-03-09] MEDS: traZODone 50 MG TAB PO PRN (20:31)
[2020-03-09] MEDS: DULoxetine 20 MG CAP (CYMBALTA) PO SCH (20:31)
[2020-03-10 06:21] VITALS: BP 119/61
--- NOTE | 2020-03-10 09:22 | MHIPNPDOC ---
[facility] Progress Note Progress Note Inpatient Progress Note Sydney Bazan MRN: N/A Date of : N/A Date of Service: 03/10/2020 History of Present Illness The patient, a 24-year-old woman with a history of depression related to chronic pain presents for reported hopelessness and on a voluntary status. She had reportedly been brought in by her therapist as she had been making concerning statements. She was evaluated and she wished to stay due to her severe depression related to her chronic pain. The patient reports that she had no history prior to this and for the last year has had chronic abdominal pain that has not been able to be elucidated in terms of diagnosis and that this causes her significant problems. 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 The patient, a 24-year-old woman with a history of depression related to chronic pain presents for reported hopelessness and on a voluntary status. She had reportedly been brought in by her therapist as she had been making concerning statements. She was evaluated and she wished to stay due to her severe depression related to her chronic pain. The patient reports that she had no history prior to this and for the last year has had chronic abdominal pain that has not been able to be elucidated in terms of diagnosis and that this causes her significant problems. 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 Interval History The patient is met with today. She reports no major changes in her depression, but does appear to be more euthymic. Her chronic pain continues, the internal med provider wasn't concerned about the drop in hemoglobin. She reports she is doing somewhat better, but is interested in going as she feels she has gotten the most she can out of this environment. Reports no changes with the Cymbalta. Review Of Systems Reports no changes in her physical symptoms from previous. Psychotherapy None on this visit. Vital Signs Reviewed. Mental Status Examination General: Well dressed with good hygiene Speech: Spontaneous and fluid Thought processes: Linear and logical MSK: Smooth and coordinated gait, no signs of tremors or involuntary orofacial movements Thought content: Less hopelessness. Abstract reasoning, and computation: Intact Description of associations: Intact Description of abnormal or psychotic thoughts: Denies any suicidal or homicidal ideation. Denies any auditory or visual hallucinations. Does not appear to be responding to internal stimuli. Does not appear to be endorsing any bizarre or paranoid ideation. Judgment: fair Insight: fair Orientation: Alert and orientated 3 Cognition: Grossly normal Recent and remote memory: Intact Attention span and concentration: Intact Fund of knowledge: Adequate Mood: "okay" Affect: Less dysthymic. Diagnoses Unspecified depressive disorder. Likely related to chronic pain. Somatic symptom disorder with predominant pain. Assessment and Plan Unspecified depressive disorder/chronic pain: Continue Cymbalta 20 mg nightly. Disposition Discharge tomorrow. Time Spent 15 minutes. Monday Vital Signs Vital Signs Date Time Temp Pulse Resp B/P (MAP) Pulse Ox O2 Delivery O2 Flow Rate FiO2 03/10/20 06:21 97.1 54 12 119/61 (80) Room Air 03/08/20 06:33 100 Laboratory Data 24H Labs Laboratory Tests 2 03/09/20 10:41: Nucleated Red Blood Cells % (auto) 0.0 03/09/20 14:51: Anion Gap 4L, Glomerular Filtration Rate > 60.0, Calcium Level 9.3, Total Bilirubin 0.3, Aspartate Amino Transf (AST/SGOT) 12, Alanine Aminotransferase (ALT/SGPT) 23, Alkaline Phosphatase 75, Total Protein 6.9, Albumin 3.6, Albumin/Globulin Ratio 1.09 03/09/20 16:30: Urine Color COLORLESS, Urine Appearance CLEAR, Urine pH 8.0, Urine Specific Brethren 1.003, Urine Protein NEGATIVE, Urine Glucose (Auto)(UA) NEGATIVE, Urine Ketones (Auto) NEGATIVE, Urine Blood 3+H, Urine Nitrite NEGATIVE, Urine Bilirubin NEGATIVE, Urine Urobilinogen 0.2, Urine Leukocyte Esterase (Auto) NEGATIVE, Urine WBC (Auto) 3, Urine RBC (Auto) 6H, Urine Hyaline Casts (Auto) 0, Urine Bacteria (Auto) NEGATIVE, Urine Squamous Epithelial Cells 0, Urine Sperm (Auto) CBC/BMP Laboratory Tests 03/09/20 10:41 03/09/20 14:51 Current Medications Current Medications Medications (Trade) Dose Ordered Sig/Jonn Route PRN Reason Start Time Stop Time Status Last Admin Dose Admin Acetaminophen (Tylenol Tab) 650 mg Q6HP PRN PO HEADACHE or DISCOMFORT 03/07/20 00:15 Al Hydrox/Mg Hydrox/Simethicone (Mylanta) 30 ml Q4HP PRN PO HEARTBURN/INDIGESTION 03/07/20 00:15 Buprenorphine/ Naloxone (Suboxone 8/2mg) 1 tab DAILY SL 03/08/20 09:00 03/07/20 16:09 DC Duloxetine HCl (Cymbalta) 20 mg QPM PO 03/09/20 21:00 03/09/20 20:31 Magnesium Hydroxide (Milk Of Magnesia) 30 ml DAILYPRN PRN PO CONSTIPATION 03/07/20 00:15 Ondansetron HCl (Zofran Odt) 4 mg Q4HP PRN PO NAUSEA OR VOMITING 03/07/20 16:15 03/08/20 20:42 Trazodone HCl (Desyrel) 50 mg QHSP PRN PO INSOMNIA 03/07/20 00:15 03/09/20 20:31 Allergies Coded Allergies: No Known Allergies (Unverified , 10/07/19) CHELA VALERA DO March 10, 2020 09:22
[2020-03-10 16:02] VITALS: BP 117/60
[2020-03-10] MEDS: ACETAMINOPHEN TAB 650MG DOSE (2X325MG) PO PRN (16:26)
[2020-03-10] MEDS: DULoxetine 20 MG CAP (CYMBALTA) PO SCH (20:10)
[2020-03-10] MEDS: traZODone 50 MG TAB PO PRN (20:10)
[2020-03-11] MEDS: ACETAMINOPHEN TAB 650MG DOSE (2X325MG) PO PRN (04:23)
[2020-03-11 06:07] VITALS: BP 108/56
--- NOTE | 2020-03-11 09:59 | MHDSPDOC ---
[facility] Discharge Summary Discharge Summary DATE OF ADMISSION: March 07, 2020 at 02:22 DATE OF DISCHARGE: 03/11/2020 Discharge Sydney Bazan MRN: N/A Date of : N/A Date of Service: 03/11/2020 Diagnoses Unspecified depressive disorder. Likely related to chronic pain. Somatic symptom disorder with predominant pain. History of Present Illness The patient, a 24-year-old woman with a history of depression related to chronic pain presents for reported hopelessness and on a voluntary status. She had reportedly been brought in by her therapist as she had been making concerning statements. She was evaluated and she wished to stay due to her severe depression related to her chronic pain. The patient reports that she had no history prior to this and for the last year has had chronic abdominal pain that has not been able to be elucidated in terms of diagnosis and that this causes her significant problems. 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 The patient, a 24-year-old woman with a history of depression related to chronic pain presents for reported hopelessness and on a voluntary status. She had reportedly been brought in by her therapist as she had been making concerning statements. She was evaluated and she wished to stay due to her severe depression related to her chronic pain. The patient reports that she had no history prior to this and for the last year has had chronic abdominal pain that has not been able to be elucidated in terms of diagnosis and that this causes her significant problems. 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 Consultants Involved Hospitalist/PCP screening Treatment and Progress On The Unit The patient was admitted to the inpatient mental health unit on a voluntary. Her suicidal ideation was not present when she had arrived. She had been tried on initially some buprenorphine as she had tried multiple antidepressants with no positive effects. However, she had quite problematic vomiting after trying this and was subsequently discontinued on it. She then was tried on Cymbalta 20 mg daily with some positive effects. The patient still report that she fell down about various things, but was no longer suicidal. She did attend the treatment and was engaged with no behavioral problems. She did make some very modest improvement, but had requested to be discharged as she want to continue her treatment as an outpatient. Discharge Assessment 24-year-old woman with a history of chronic pain and depression. She presents and is treated with various agents ending with Cymbalta, which could be a helpful agent. Initially, there had been thought of having a chronic pain consultation, however, she is still being worked up by GI, and thus it was decided that the patient will pursue outpatient evaluation and treatment. The patient at the time of discharge did not meet criteria for involuntary admission/extension due to having a normal mental status exam, fair insight into the situation, They are engaged in the discharge process, as well as being friendly and amenable in behavioral control and havent been engaging in any observed concerning behavior or ideation recently. They decline voluntary extension/admission at this time and must be discharged in good carlene, as Im unable to make a case for holding the patient against their will. They may have historical risk factors of admissions and other interactions with psychiatry however, those are not modifiable from a clinical perspective. The patient will need to be discharged in good carlene. Mental Status Examination General: Well dressed with good hygiene Speech: Spontaneous and fluid Thought processes: Linear and logical MSK: Smooth and coordinated gait, no signs of tremors or involuntary orofacial movements Thought content: Future orientated Abstract reasoning, and computation: Intact Description of associations: Intact Description of abnormal or psychotic thoughts: Denies any suicidal or homicidal ideation. Denies any auditory or visual hallucinations. Does not appear to be responding to internal stimuli. Does not appear to be endorsing any bizarre or paranoid ideation. Judgment: fair Insight: fair Orientation: Alert and orientated 3 Cognition: Grossly normal Recent and remote memory: Intact Attention span and concentration: Intact Fund of knowledge: Adequate Mood: "okay" Affect: Improved and more euthymic. Follow Up The social work team worked during the predischarge meeting in order to evaluate for further issues of lethality address them fully before discharge. They worked on safety planning with the patient's family members in order to ensure that the patient will have a safe and effective discharge. Time Spent The amount of time spent in the coordination of care for this patient was approximately 45 minutes. Monday Vital Signs/I&Os Vital Signs Date Time Temp Pulse Resp B/P (MAP) Pulse Ox O2 Delivery O2 Flow Rate FiO2 03/11/20 06:07 97.9 76 16 108/56 (73) 03/10/20 06:21 Room Air 03/08/20 06:33 100 Medications Scheduled Duloxetine HCl (Cymbalta) 20 Mg Capsule.dr, 20 MG PO QPM for mood for 7 Days, #7 Scheduled PRN Trazodone HCl (Trazodone HCl) 50 Mg Tablet, 50 MG PO QHSP PRN for INSOMNIA for 7 Days, #7 Allergies Coded Allergies: No Known Allergies (Unverified , 10/07/19) CHELA VALERA DO March 11, 2020 09:58
[2020-03-11] MEDS ORDERED: TRAZ-252 PO (10:16)
[2020-03-11] MEDS ORDERED: CYMB1CAP4 PO (10:16)
== END 2020-03-11 11:35 | disposition home or self-care (01) | DRG 881 ==
LOC: M ED 16:01 → UNDOADMIN 03-07 00:10 → M ED INP 03-07 00:10 → M PSY 03-07 02:19 → M ED INP 03-07 02:19 → M PSY 03-07 02:22
PROVIDERS: ADMIT Psychiatry & Neurology Addiction Medicine; ATTEND Psychiatry & Neurology Addiction Medicine
DX: F32.9 Major depressive disorder, single episode, unspecified (principal); R10.11 Right upper quadrant pain; F45.41 Pain disorder exclusively related to psychological factors; N92.0 Excessive and frequent menstruation with regular cycle; R11.2 Nausea with vomiting, unspecified; E86.0 Dehydration; T40.4X5A Adverse effect of other synthetic narcotics, initial encounter

== ENCOUNTER → 2020-05-07 | Outpatient (CLI) | payer OTHER ==
[~2020-05-07] MED LIST changes: +CYMB1CAP4 PO; +TRAZ-252 PO
--- NOTE | 2020-05-07 11:34 | REP ---
HIDA SCAN WITH GALLBLADDER EJECTION FRACTION: Following the intravenous administration of 6.6 millicuries of technetium 99m Mebrofenin, multiple images of the right upper quadrant are performed for 1 hour. The gallbladder is visualized at 5 minutes post-injection. There is biliary to bowel transit 35 minutes post injection with no scintigraphic evidence of cholecystitis. At the 1-hour krystyna, 8 ounces of Ensure Enlive was ingested and further imaging performed for 1 hour. Gallbladder activity is measured. The gallbladder ejection fraction is calculated to be 62% which is normal. IMPRESSION: Normal gallbladder ejection fraction. Electronically Signed by Lawrence Ambrose MD 05/10/2020 10:16 P
== END ==
LOC: M RAD 07:40
PROVIDERS: ATTEND Internal Medicine Gastroenterology
DX: R10.13 Epigastric pain (principal); R11.2 Nausea with vomiting, unspecified
CPT/HCPCS: 78227; A9537

== ENCOUNTER 2020-10-06 09:39 | Day surgery (SDC) | payer OTHER ==
[~2020-10-06] VITALS: Ht 170.2 cm; Wt 90.3 kg
[~2020-10-06 09:39] MED LIST changes: +LIDOCAINE 1% MDV 20ML VIAL SQ PRN; +LR 1,000 ML IV ONE; +MIDAZOLAM INJ 2MG/2ML VIAL (J2250 PER 1MG) As Ordered ONE; +fentaNYL 100 MCG/2 ML INJECTION (J3010) As Ordered ONE
[2020-10-06] MEDS ORDERED: dexameTHASONE 4 MG/ML 1ML VIAL (J1100 PER 1MG) As Ordered ONE (09:42)
[2020-10-06 10:19] LABS: HEMATOCRIT 39.8 % (36.0-47.0); HEMOGLOBIN 12.9 g/dl (12.0-15.5); MEAN CORPUSCULAR HEMOGLOBIN 29.8 pg (27.0-33.0); MEAN CORPUSCULAR HGB CONC 32.4 g/dl (32.0-36.5); MEAN CORPUSCULAR VOLUME 91.9 fl (80.0-96.0); PLATELET COUNT, AUTOMATED 266 10^3/uL (150-450); RED BLOOD COUNT 4.33 10^6/uL (4.00-5.40); WHITE BLOOD COUNT 6.9 10^3/uL (4.0-10.0)
[2020-10-06 10:22] LABS: HCG, SERUM QUALITATIVE NEGATIVE (NEGATIVE)
[2020-10-06] MEDS ORDERED: ROCURONIUM BROMIDE 50 MG/5 ML VIAL As Ordered ONE (10:56)
[2020-10-06] MEDS ORDERED: LIDOCAINE 2% 100MG/5ML SDV (FOR ANES.) As Ordered ONE (11:01)
[2020-10-06] MEDS ORDERED: BUPIVACAINE HCL 0.5% 30 ML VIAL As Ordered ONE (11:56)
[2020-10-06] MEDS ORDERED: propofoL 200 MG/20 ML VIAL As Ordered ONE (12:25)
[2020-10-06] MEDS ORDERED: METOCLOPRAMIDE INJ 10MG/2ML VIAL (J2765 PER 1) As Ordered ONE (12:25)
[2020-10-06] MEDS ORDERED: ONDANSETRON 4MG/2ML VIAL As Ordered ONE (12:25)
[2020-10-06] MEDS ORDERED: SUGAMMADEX SODIUM 500 MG/5 ML VIAL (BRIDION) As Ordered ONE (12:26)
[2020-10-06] MEDS ORDERED: KETOROLAC 60MG 2ML VIAL As Ordered ONE (12:26)
[2020-10-06] MEDS ORDERED: ACETAMINOPHEN 1000MG 100ML IV BTL (OFIRMEV) (J0131 PER 10MG) As Ordered ONE (12:26)
[2020-10-06] MEDS ORDERED: fentaNYL 100 MCG/2 ML INJECTION (J3010) As Ordered ONE (12:39)
[2020-10-06] MEDS ORDERED: METOCLOPRAMIDE INJ 10MG/2ML VIAL (J2765 PER 1) IV PRN (13:15)
[2020-10-06] MEDS ORDERED: ONDANSETRON 4MG/2ML VIAL IV PRN (13:15)
[2020-10-06] MEDS ORDERED: KETOROLAC 30 MG/ML 1ML VIAL IV PRN (13:15)
[2020-10-06] MEDS ORDERED: fentaNYL 100 MCG/2 ML INJECTION (J3010) IV PRN (13:15)
[2020-10-06] MEDS ORDERED: PERCOCET 5MG/325MG TAB PO PRN (13:15)
[2020-10-06] MEDS ORDERED: oxyCODONE 5MG TAB PO PRN (13:15)
[2020-10-06] MEDS ORDERED: LR 1,000 ML IV SCH (13:15)
--- NOTE | 2020-10-06 14:48 | RO ---
OPERATIVE NOTE DATE OF OPERATION: 10/06/2020 PREOPERATIVE DIAGNOSIS: Chronic pelvic pain. POSTOPERATIVE DIAGNOSIS: Chronic pelvic pain. PROCEDURE: Diagnostic laparoscopy. SURGEON: Zeb Mayer DO HAT BRIM CURLER: Dr. Wan IV FLUIDS: 600 cc lactated Ringers ESTIMATED BLOOD LOSS: 1 cc URINE OUTPUT: 300 cc ANTIBIOTICS: None indicated. OPERATIVE FINDINGS: Normal appearing abdomen. Normal liver edge. Normal gastric curve. Normal ovaries and fallopian tubes bilaterally. Normal uterus. Normal anterior and posterior cul-de-sac. COMPLICATIONS: None. DETAILED PROCEDURE DESCRIPTION: The risks, benefits, indications and alternatives of the procedure were reviewed with the patient and informed consent was obtained. The patient was taken to the operating room where general anesthesia was obtained without difficulty. The patient was then placed in the lithotomy position using Jez Stirrups. Her arms were gently tucked to the sides with padding. She was then prepped and draped in the usual sterile fashion. A surgical time-out was then performed and the patient's identified and planned procedure verified with the operating team. A Moncada catheter was first placed to drain the bladder. A sponge stick was then placed into the patient's vagina. Gloves were then exchanged and attention was then turned to the patient's abdomen where a 5 mm skin incision was made in the inferior aspect of the umbilicus after injection of 25% Marcaine. A 5 mm trocar and sleeve were then carefully introduced into the peritoneal cavity under direct visualization in a 90 degree angle tenting up the abdominal wall. Intraperitoneal placement was confirmed under direct visualization with the laparoscope. An pneumoperitoneum was then obtained with several liters of Co2 gas. Upon entry into the peritoneal cavity, structures immediately below the incision were inspected and found to be free of injury. A second 5 mm trocar was then inserted into the left lower quadrant under direct visualization after injection of Marcaine and a skin incision was made with the scalpel. A survey of the patient's abdomen and pelvis was notable for a normal appearing liver and gastric curve. The uterus, fallopian tubes and ovaries were normal in appearance. The anterior and posterior cul-de-sacs were inspected and were normal. The uterosacral ligaments were inspected and were normal. The bilateral ovarian fossa was inspected and were normal in appearance as well. There was no gross evidence of implants of endometriosis anywhere in the pelvis. The gas was then turned off and all Co2 was removed from the patient's abdomen. The trocar was then removed under direct visualization and there was no bleeding seen from the trocar sites. Skin incisions were then closed with 4-0 Monocryl suture and covered with Dermabond. The sponge stick was then taken out of the patient's vagina. The patient's Moncada catheter was removed. All instruments were then confirmed to have been removed from the vagina. At the completion of the case, the sponge, instrument, and needle counts were correct times two. The patient tolerated the procedure and taken to the PACU in stable condition. JUAN M
[2020-10-06 15:10] VITALS: BP 128/77
== END 2020-10-06 15:10 | disposition home or self-care (01) ==
LOC: M SDC 09:39
PROVIDERS: ATTEND Obstetrics & Gynecology
DX: R10.2 Pelvic and perineal pain (principal); K21.9 Gastro-esophageal reflux disease without esophagitis; F41.9 Anxiety disorder, unspecified; F32.9 Major depressive disorder, single episode, unspecified
CPT/HCPCS: 36415; 49320; 84703; 85027; 86850; 86900; 86901; J0131; J1100; J1885; J2250; J2405; J2765; J3010

== ENCOUNTER → 2022-02-21 | Outpatient (REF) | payer OTHER ==
[~2022-02-21] MED LIST changes: -LIDOCAINE 1% MDV 20ML VIAL SQ PRN; -LR 1,000 ML IV ONE; -MIDAZOLAM INJ 2MG/2ML VIAL (J2250 PER 1MG) As Ordered ONE; +OMEP40CA4 PO; -OMEP40CA97 PO; -fentaNYL 100 MCG/2 ML INJECTION (J3010) As Ordered ONE
[2022-02-21 21:47] LABS: APPEARANCE, URINE CLEAR (CLEAR); BACTERIA, URINE AUTO NEGATIVE (NEGATIVE); BILIRUBIN, URINE AUTO NEGATIVE (NEGATIVE); BLOOD, URINE BLOOD NEGATIVE (NEGATIVE); COLOR, URINE YELLOW (YELLOW); GLUCOSE, URINE (UA) AUTO NEGATIVE (NEGATIVE); KETONE, URINE AUTO NEGATIVE (NEGATIVE); LEUKOCYTE ESTERASE, URINE AUTO NEGATIVE (NEGATIVE); NITRITE, URINE AUTO NEGATIVE (NEGATIVE); PROTEIN, URINE AUTO NEGATIVE (NEGATIVE); RBC, URINE AUTO 1 /HPF (0-3); SPECIFIC GRAVITY URINE AUTO 1.016 (1.002-1.035); SQUAMOUS EPITHELIAL CELL UR AU 1 /HPF (0-6); UROBILINOGEN, URINE AUTO 0.2 mg/dL (0.0-2.0); WBC, URINE AUTO 0 /HPF (0-3)
[2022-02-21 23:16] LABS: GC DNA AMPLIFICATION NEGATIVE (NEGATIVE)
== END ==
LOC: M LAB REF 21:30
PROVIDERS: ATTEND Physician Assistant Medical
DX: R30.0 Dysuria (principal)

== ENCOUNTER → 2022-04-14 | Outpatient (REF) | payer OTHER ==
[2022-04-14 17:43] LABS: APPEARANCE, URINE CLEAR (CLEAR); BACTERIA, URINE AUTO NEGATIVE (NEGATIVE); BILIRUBIN, URINE AUTO NEGATIVE (NEGATIVE); BLOOD, URINE BLOOD 1+ (NEGATIVE); COLOR, URINE YELLOW (YELLOW); GLUCOSE, URINE (UA) AUTO NEGATIVE (NEGATIVE); KETONE, URINE AUTO NEGATIVE (NEGATIVE); LEUKOCYTE ESTERASE, URINE AUTO NEGATIVE (NEGATIVE); NITRITE, URINE AUTO NEGATIVE (NEGATIVE); PROTEIN, URINE AUTO NEGATIVE (NEGATIVE); RBC, URINE AUTO 0 /HPF (0-3); SPECIFIC GRAVITY URINE AUTO 1.009 (1.002-1.035); SQUAMOUS EPITHELIAL CELL UR AU 1 /HPF (0-6); UROBILINOGEN, URINE AUTO 0.2 mg/dL (0.0-2.0); WBC, URINE AUTO 0 /HPF (0-3)
== END ==
LOC: M SMT 16:46
PROVIDERS: ATTEND Physician Assistant
DX: R32 Unspecified urinary incontinence (principal)

== ENCOUNTER → 2022-04-22 | Outpatient (CLI) | payer OTHER ==
[~2022-04-22] MED LIST changes: +PROHANCE 279.3MG/ML 15ML VIAL ONE; +PROHANCE 279.3MG/ML 5ML VIAL ONE
== END ==
LOC: M PLAIMG 13:15
PROVIDERS: ATTEND Physician Assistant
DX: R32 Unspecified urinary incontinence (principal)
CPT/HCPCS: 72158; A9576